=== PATIENT | female | born 2000 | race Caucasian/White ===

== ENCOUNTER 2019-04-30 21:25 | Emergency (ER) | payer OTHER ==
[~2019-04-30] VITALS: Ht 165.1 cm; Wt 88.0 kg
[2019-04-30 21:34] VITALS: Ht 165.1 cm; Wt 88.0 kg
[2019-05-01 00:39] VITALS: BP 133/61
== END 2019-05-01 03:27 | disposition home or self-care (01) ==
LOC: ED 21:25
DX: S60.415A Abrasion of left ring finger, initial encounter (principal); W26.8XXA Contact with other sharp object(s), not elsewhere classified, initial encounter; Y93.89 Activity, other specified; Y92.89 Other specified places as the place of occurrence of the external cause; Y99.8 Other external cause status
CPT/HCPCS: 90715